=== PATIENT | female | born 1990 | race Caucasian/White ===

== ENCOUNTER 2021-03-29 08:59 | Emergency (ER) | payer OTHER, SELFPAY ==
[2021-03-29 09:09] VITALS: BP 113/73; PULSE 92; RESP 16; TEMP 36.3; O2SAT 100
--- NOTE | 2021-03-29 09:16 | ED.URI ---
HPI - URI/Sore Throat General Chief Complaint: Upper Respiratory Infection Stated Complaint: Sore Throat,Ear Pain Time Seen by Provider: 03/29/21 09:16 Source: patient Mode of arrival: ambulatory Limitations: no limitations History of Present Illness HPI Narrative: Huma Chaudhry is a 21-year-old female who comes to [facility] with sore throat, ear pain that started yesterday. She has had a lot of problems with her tonsils as a child she did not receive the Covid vaccine but states she did have Covid in December. She does not smoke Related Data Home Medications Medication Instructions Recorded Confirmed No Home Medications 03/29/21 03/29/21 Allergies Allergy/AdvReac Type Severity Reaction Status Date / Time azithromycin Allergy Severe Swelling Verified 03/29/21 09:16 amoxicillin [From Amoxil] Allergy Rash Verified 03/29/21 09:16 Review of Systems Review of Systems: CONSTITUTIONAL: Denies fever, chills, sweats. EYES: Denies visual changes, redness, discharge. ENT: Denies rhinorrhea, congestion, has sore throat, has right otalgia. CARDIOVASCULAR: Denies chest pain, palpitations, edema. RESPIRATORY: Denies dyspnea, wheezing, cough GASTROINTESTINAL: Denies abdominal pain, nausea, vomiting, diarrhea. GENITOURINARY: Denies dysuria, hematuria, abnormal discharge SKIN: Denies rash or itching. NEUROLOGIC: Denies numbness, or focal weakness. PSYCHIATRIC: Denies anxiety or depression. [facility] Past Medical History Medical History History of COVID-19 Family History Family History Grandparent Diabetes mellitus Other Hypertension Social History Social History (Updated 03/29/21 @ 09:18 by Pamela Tim CNP) Smoking status: Never smoker Alcohol intake: current Comments At time of signature, I agree with nursing past medical, surgical, social and family history. There is no relevant family history pertinent to the presenting complaint. Exam Narrative: GENERAL: This is a well-nourished, well-developed patient, in mild distress. HEAD: normocephalic, atraumatic. EYES: . Sclera clear/white. Vision is grossly intact. EARS: External ears normal, auditory canals erythema and without drainage, TMs normal without perforation. Hearing grossly intact. NOSE: External nose normal without nasal discharge, nares without redness, no rhinorrhea. THROAT: Mucous membranes moist, posterior pharynx erythema with tonsillar swelling on the left NECK: Neck supple, tender on right CARDIOVASCULAR: Regular rate and rhythm without murmurs, gallops, or rubs. RESPIRATORY: Clear to auscultation. Breath sounds equal bilaterally. No wheezes, rales, or rhonchi. GASTROINTESTINAL: Abdomen soft, non-tender, SKIN: warm, intact with no suspicious lesions or rash, good texture and turgor. NEURO: awake, alert, and oriented to person, place and time. There were no obvious focal neurologic abnormalities. Steady gait EXTREMITIES: Normal range of motion. BACK: Nontender without deformity Course Course Emergency Course: Patient here with sore throat and right ear pain Strep test negative Mild flushing of right ear to loosen some wax but is not impacted-started on polymyxin eardrops, started on prednisone, Zyrtec- to use debrox after ear drops Vital Signs Vital signs: Vital Signs Temperature 97.3 F L 03/29/21 09:09 Pulse Rate 92 03/29/21 09:09 Respiratory Rate 16 03/29/21 09:09 Blood Pressure 113/73 03/29/21 09:09 Pulse Oximetry 100 03/29/21 09:09 Temperature 97.3 F L 03/29/21 09:09 Pulse Rate 92 03/29/21 09:09 Respiratory Rate 16 03/29/21 09:09 Blood Pressure 113/73 03/29/21 09:09 Pulse Oximetry 100 03/29/21 09:09 MDM - URI/Sore Throat Differential Diagnosis Differential diagnosis: Likely upper respiratory infection, otitis media, sinusitis, viral infection, bronchitis, influenza, pharyngitis a
== END 2021-03-29 09:40 | disposition home or self-care (01) ==
PROVIDERS: Emergency Provider Nurse Practitioner; PCP Nurse Practitioner Family
DX: J02.9 Acute pharyngitis, unspecified (principal); H66.001 Acute suppurative otitis media without spontaneous rupture of ear drum, right ear; Z86.16 Personal history of COVID-19
CPT/HCPCS: 87081; 87880; 99213; G0463

== ENCOUNTER 2021-04-26 08:36 | Emergency (ER) | payer OTHER, SELFPAY ==
[2021-04-26 08:46] VITALS: BP 115/67; PULSE 71; RESP 16; TEMP 36.7
--- NOTE | 2021-04-26 09:07 | ED.EAR ---
HPI - Ear Problem General Chief complaint: Ear Stated complaint: Ear Pain Time Seen by Provider: 04/26/21 08:57 Source: patient and RN notes reviewed Mode of arrival: ambulatory Limitations: no limitations History of Present Illness HPI Narrative: Patient presents today complaining of left ear pain x2 days that radiates down her jaw and down her left neck as well as up to her left parietal scalp causing a headache. Denies any URI symptoms to include rhinorrhea, cough, sore throat, fever. No decreased hearing or drainage from the ear. She currently rates her pain 8/10 and has been taking ibuprofen with mild relief. Pain increases with swallowing. MD Complaint: ear pain Related Data Allergies Allergy/AdvReac Type Severity Reaction Status Date / Time azithromycin Allergy Severe Swelling Verified 04/26/21 08:58 amoxicillin [From Amoxil] Allergy Rash Verified 04/26/21 08:58 Review of Systems Review of Systems: CONSTITUTIONAL: Denies body aches, fever, chills, or sweats. EYES: Denies visual changes, redness, or discharge. ENT: Denies rhinorrhea, congestion, sore throat. + Left ear pain CARDIOVASCULAR: Denies chest pain, palpitations, or edema. RESPIRATORY: Denies cough or dyspnea. GASTROINTESTINAL: Denies abdominal pain, nausea, vomiting, or diarrhea. GENITOURINARY: Denies dysuria or hematuria. SKIN: Denies rash, itching, or wounds. MUSCULOSKELETAL: Denies back pain, joint pain, or myalgia. NEUROLOGIC: Denies headache, numbness, tingling, or weakness. PSYCH: Denies depression or anxiety. [facility] Past Medical History Medical History History of COVID-19 Family History Family History Grandparent Diabetes mellitus Other Hypertension Social History Social History Smoking status: Never smoker Alcohol intake: current Comments At time of signature, I have reviewed and agree with nursing past medical, surgical, social and family history unless otherwise noted. Please see nursing chart for further information. There is no relevant family history pertinent to the presenting complaint Exam Narrative: GENERAL: Well-appearing, well-nourished, and in no acute distress. HEAD: Normocephalic, atraumatic. EYES: EOMI. No redness or drainage. Conjunctivae normal. ENT: Mucous membranes pink and moist. Nares clear. No rhinorrhea. TMs normal bilaterally. Bilateral ear canals normal.+ Left movement and tragal tenderness. Throat mildly erythematous without edema or exudate. Uvula midline. NECK: Normal AROM. Supple. No lymphadenopathy. CHEST: No respiratory distress. Clear to auscultation. HEART: Regular rate and rhythm. No murmur appreciated. Normal peripheral pulses. EXTREMITIES: Normal range of motion. No edema. SKIN: Warm, dry, no rash. Capillary refill normal. Normal skin turgor. NEURO: No focal deficits. Alert and oriented x3. Gait steady. PSYCH: Normal affect. No signs of depression or anxiety. Course Vital Signs Vital signs: Vital Signs Temperature 98.1 F 04/26/21 08:46 Pulse Rate 71 04/26/21 08:46 Respiratory Rate 16 04/26/21 08:46 Blood Pressure 115/67 04/26/21 08:46 Temperature 98.1 F 04/26/21 08:46 Pulse Rate 71 04/26/21 08:46 Respiratory Rate 16 04/26/21 08:46 Blood Pressure 115/67 04/26/21 08:46 Reviewed. Pt has been instructed to follow up with his PCP regarding his elevated blood pressure today. Medical Decision Making Differential Diagnosis Differential Diagnosis: Otitis media, otitis externa, ruptured TM, serous otitis, eustachian tube dysfunction, pharyngitis, strep throat Vital Signs Vital Signs: Vital Signs Temperature 98.1 F 04/26/21 08:46 Pulse Rate 71 04/26/21 08:46 Respiratory Rate 16 04/26/21 08:46 Blood Pressure 115/67 04/26/21 08:46 Temperature 98.1 F
== END 2021-04-26 09:40 | disposition home or self-care (01) ==
PROVIDERS: Emergency Provider Nurse Practitioner
DX: J02.9 Acute pharyngitis, unspecified (principal); Z86.16 Personal history of COVID-19
CPT/HCPCS: 87081; 87880; 99213; G0463

== ENCOUNTER 2021-07-10 17:20 | Emergency (ER) | payer SELFPAY ==
[2021-07-10 17:20] VITALS: BP 115/74; PULSE 79; RESP 18; TEMP 36.8; O2SAT 100
--- NOTE | 2021-07-10 17:28 | ED.URI ---
HPI - URI/Sore Throat General Chief Complaint: Upper Respiratory Infection Stated Complaint: Sore throat Time Seen by Provider: 07/10/21 17:29 Source: patient, family, RN notes reviewed and old records reviewed Mode of arrival: ambulatory Limitations: no limitations History of Present Illness HPI Narrative: 31-year-old female presents to the [facility] with complaints of a sore throat. Patient reports sore throat x2 days. Had a headache that has cleared. MD elicited complaint: sore throat Related Data Allergies Allergy/AdvReac Type Severity Reaction Status Date / Time azithromycin Allergy Severe Swelling Verified 07/10/21 17:47 amoxicillin [From Amoxil] Allergy Rash Verified 07/10/21 17:47 Review of Systems Review of Systems: All systems reviewed & are unremarkable except as noted in HPI and below Constitutional: Constitutional: Reports no additional constitutional complaints, Denies chills, Denies fever(s) and Denies headache(s) Eyes: Eyes: Reports no additional eye complaints ENT: Reports as per HPI, Denies vertigo, Denies dizziness, Denies headache(s), Denies nasal congestion and Reports sore throat Cardiovascular: Cardiovascular: Reports no additional cardiovascular complaints, Denies chest pain, Denies syncope, Denies rapid heart rate and Denies dyspnea Respiratory: Respiratory: Reports no additional respiratory complaints, Denies cough, Denies dyspnea and Denies wheezing Gastrointestinal: Gastrointestinal: Reports no additional gastrointestinal complaints, Denies abdominal pain, Denies diarrhea, Denies nausea and Denies vomiting Musculoskeletal: Musculoskeletal: Reports no additional musculoskeletal complaints and Denies numbness Integumentary/Breasts: Skin/Breast: Reports system reviewed and no additional complaints, except as docu Neurologic: Reports system reviewed and no additional complaints, except as documented, Denies vertigo, Denies dizziness, Denies syncope, Denies headache(s), Denies focal weakness and Denies numbness Psychiatric: Psychiatric: Reports no additional psychiatric complaints Allergic/Immunologic: Allergic/Immunologic: Reports no additional allergic/immunologic complaints and Denies wheezing PMFSH Past Medical History Medical History History of COVID-19 Family History Family History Grandparent Diabetes mellitus Other Hypertension Social History Social History Smoking status: Never smoker Alcohol intake: current Comments At the time of my signature, I reviewed and agree with the nursing past medical, surgical, social, and family history. There is no relevant family history pertinent to the patient complaint. Exam Const: General: cooperative, healthy appearing, no acute distress, well developed and alert Nutritional Appearance: well nourished Orientation/consciousness: patient oriented x3 Limitations: no limitations HENMT: Head: normal to inspection Ears: external ears normal, TM's normal bilaterally and EAC's normal General nose exam: Normal external nose present and Normal nasal mucous membranes and turbinates present Face and sinus: normal facial exam Mouth: Yes Normal oral and palatal mucosa present, Yes moist mucous membranes and No muffled voice Throat: uvula midline, abnormal tonsil bilateral exudates and hypertrophy 3+ and no uvular edema Eyes: Conjunctivae: conjunctivae normal Pupils: Equal, round and reactive pupils present Direct Ophthalmoscopy: no photophobia Neck: Neck: normal visual inspection, no lymphadenopathy and no meningeal signs Chest: Chest palpation & inspection: normal inspection of the chest Resp: Effort & Inspection: normal respiratory effort and no use of accessory muscles Auscultation: clear to auscultation bilaterally, no crackles, no rales, no rhonchi and no wheezes Card
== END 2021-07-10 17:57 | disposition home or self-care (01) ==
PROVIDERS: Emergency Provider Nurse Practitioner
DX: J03.90 Acute tonsillitis, unspecified (principal); Z86.16 Personal history of COVID-19
CPT/HCPCS: 87081; 87880; 99213; G0463

== ENCOUNTER 2021-11-08 13:15 | Emergency (ER) | payer OTHER, SELFPAY ==
[2021-11-08 13:24] VITALS: BP 111/62; PULSE 76; RESP 16; TEMP 37.4; O2SAT 100
--- NOTE | 2021-11-08 13:28 | ED.URI ---
HPI - URI/Sore Throat General Chief Complaint: Upper Respiratory Infection Stated Complaint: Sore Throat Time Seen by Provider: 11/08/21 13:28 Source: patient, family, RN notes reviewed and old records reviewed Mode of arrival: ambulatory Limitations: no limitations History of Present Illness HPI Narrative: 31-year-old female presents to the [facility] with complaints of a sore throat that started today. Had a family member look at her throat and noticed that she had some enlarged tonsils. Was seen several months ago for same complaint but states that she felt worse. At that time she was treated for tonsillitis, never followed up with her primary care provider. Currently denies any fevers. Her microbiology was negative for strep in the past. MD elicited complaint: sore throat Related Data Allergies Allergy/AdvReac Type Severity Reaction Status Date / Time azithromycin Allergy Severe Swelling Verified 11/08/21 13:27 amoxicillin [From Amoxil] Allergy Rash Verified 11/08/21 13:27 Review of Systems Review of Systems: All systems reviewed & are unremarkable except as noted in HPI and below Constitutional: Constitutional: Reports no additional constitutional complaints, Denies chills, Denies fever(s) and Denies headache(s) Eyes: Eyes: Reports no additional eye complaints ENT: Reports as per HPI, Denies vertigo, Denies dizziness, Denies headache(s), Denies nasal congestion and Reports sore throat Cardiovascular: Cardiovascular: Reports no additional cardiovascular complaints, Denies chest pain, Denies syncope, Denies rapid heart rate and Denies dyspnea Respiratory: Respiratory: Reports no additional respiratory complaints, Denies cough, Denies dyspnea and Denies wheezing Gastrointestinal: Gastrointestinal: Reports no additional gastrointestinal complaints, Denies abdominal pain, Denies diarrhea, Denies nausea and Denies vomiting Musculoskeletal: Musculoskeletal: Reports no additional musculoskeletal complaints and Denies numbness Integumentary/Breasts: Skin/Breast: Reports system reviewed and no additional complaints, except as docu Neurologic: Reports system reviewed and no additional complaints, except as documented, Denies vertigo, Denies dizziness, Denies syncope, Denies headache(s), Denies focal weakness and Denies numbness Psychiatric: Psychiatric: Reports no additional psychiatric complaints Allergic/Immunologic: Allergic/Immunologic: Reports no additional allergic/immunologic complaints and Denies wheezing PMFSH Past Medical History Medical History History of COVID-19 Family History Family History Grandparent Diabetes mellitus Other Hypertension Social History Social History Smoking status: Never smoker Alcohol intake: current Comments At the time of my signature, I reviewed and agree with the nursing past medical, surgical, social, and family history. There is no relevant family history pertinent to the patient complaint. Exam Const: General: cooperative, healthy appearing, no acute distress, well developed and alert Nutritional Appearance: well nourished Orientation/consciousness: patient oriented x3 Limitations: no limitations HENMT: Head: normal to inspection Ears: external ears normal, TM's normal bilaterally and EAC's normal General nose exam: Normal external nose present Face and sinus: normal facial exam Mouth: Yes Normal oral and palatal mucosa present Throat: uvula midline, abnormal tonsil bilateral hypertrophy 2+; no erythema and no uvular edema Eyes: Conjunctivae: conjunctivae normal Pupils: Equal, round and reactive pupils present Neck: Neck: normal visual inspection, no lymphadenopathy and no meningeal signs Chest: Chest palpation & inspection: normal inspection of the chest Resp: Effort & Inspection: normal respir
== END 2021-11-08 14:25 | disposition home or self-care (01) ==
PROVIDERS: Emergency Provider Nurse Practitioner
DX: J35.1 Hypertrophy of tonsils (principal); Z86.16 Personal history of COVID-19
CPT/HCPCS: 87081; 87880; 99213; G0463

== ENCOUNTER 2021-12-09 08:11 | Emergency (ER) | payer OTHER, SELFPAY ==
--- NOTE | ~2021-12-09 | XR_ITS ---
EXAMINATION: XR ankle RT 2V DATE: 12/09/2021 08:40 INDICATION: Posttraumatic anterior right ankle pain after being hit with a softball TECHNIQUE: Anteroposterior and lateral views of the right ankle were obtained. COMPARISON: None. FINDINGS: Alignment is normal. No fracture. Joint spaces are normal. Soft tissues are unremarkable. No right an kle joint effusion. IMPRESSION: 1. Negative right ankle radiographs. Reviewed, dictated and finalized at location B.
[2021-12-09 08:18] VITALS: BP 98/51; PULSE 96; RESP 16; TEMP 37.2; O2SAT 99
--- NOTE | 2021-12-09 08:29 | ED.LOWEXIN ---
HPI - Extremity Injury (Lower) General Chief Complaint: Extremity Injury, Lower Stated Complaint: right ankle pain Time Seen by Provider: 12/09/21 08:29 Source: patient Mode of arrival: ambulatory Limitations: no limitations History of Present Illness HPI Narrative: 31-year-old female presented for complaint of right ankle pain after injury 1 week ago. She states she took a line drive to the lower leg while playing softball. Since then it has gotten progressively worse. She is able to walk, denies numbness, tingling, or weakness of the foot. She has been using ice and Tylenol. States pain radiates up to the knee and she was concerned. No other complaints at this time. Related Data Home Medications Medication Instructions Recorded Confirmed No Home Medications 12/09/21 12/09/21 Allergies Allergy/AdvReac Type Severity Reaction Status Date / Time azithromycin Allergy Severe Swelling Verified 11/08/21 13:27 amoxicillin [From Amoxil] Allergy Rash Verified 11/08/21 13:27 Review of Systems Review of Systems: CONSTITUTIONAL: Denies body aches, fever, chills CARDIOVASCULAR: Denies chest pain, palpitations, or edema. RESPIRATORY: Denies cough or dyspnea. SKIN: Denies rash, itching, or wounds. MUSCULOSKELETAL: Denies back pain, joint pain, or myalgia. NEUROLOGIC: Denies headache, numbness, tingling, or weakness. All systems reviewed & are unremarkable except as noted in HPI and below PMFSH Past Medical History Medical History History of COVID-19 Family History Family History Grandparent Diabetes mellitus Other Hypertension Social History Social History Smoking status: Never smoker Alcohol intake: current Comments At time of signature, I have reviewed and agree with nursing past medical, surgical, social and family history unless otherwise noted. Please see nursing chart for further information. There is no relevant family history pertinent to the presenting complaint Exam Narrative: GENERAL: Well-appearing, well-nourished, and in no acute distress. CHEST: No respiratory distress. HEART: Regular rate and rhythm. Normal and equal peripheral pulses. EXTREMITIES: Right anterior lower leg contusion yellow and purple in color, tender with mild swelling, tender with palpation; RLE has normal strength and sensation, mild decreased range of motion at ankle. No open wounds, skin tenting, or obvious deformity; pulse palpable and equal bilaterally, skin warm, dry, pink. Capillary refill less than 3 seconds. SKIN: Warm, dry, no rash. NEURO: Alert and oriented x3. PSYCH: Normal mood and affect Course Course Emergency Course: Patient is aware of diagnosis, understands and agrees to treatment plan. Anticipatory guidance given. Patient agrees to follow-up as directed and is aware of reasons to seek care at the emergency department. Portions of this record may have been created with voice recognition software Level of Care: Express Care Visit Vital Signs Vital signs: Vital Signs Temperature 98.9 F 12/09/21 08:18 Pulse Rate 96 12/09/21 08:18 Respiratory Rate 16 12/09/21 08:18 Blood Pressure 98/51 L 12/09/21 08:18 Pulse Oximetry 99 12/09/21 08:18 Oxygen Delivery Room Air 12/09/21 08:18 Temperature 98.9 F 12/09/21 08:18 Pulse Rate 96 12/09/21 08:18 Respiratory Rate 16 12/09/21 08:18 Blood Pressure 98/51 L 12/09/21 08:18 Pulse Oximetry 99 12/09/21 08:18 Oxygen Delivery Room Air 12/09/21 08:18 Reviewed MDM - Extremity Injury (Lower) MDM Narrative Medical decision making narrative: xray reviewed with pt. Advised RICE therapy. v/u. Differential Diagnosis Differential diagnosis: Likely ankle sprain and strain and ankle fracture Discharge Plan Discharge Clinical Impression: Contusion of
== END 2021-12-09 08:46 | disposition home or self-care (01) ==
PROVIDERS: Emergency Provider Nurse Practitioner Family
DX: S90.01XA Contusion of right ankle, initial encounter (principal); W21.07XA Struck by softball, initial encounter; Z86.16 Personal history of COVID-19
CPT/HCPCS: 73600; 99213; G0463

== ENCOUNTER 2022-07-11 10:04 | Emergency (ER) | payer OTHER, SELFPAY ==
[2022-07-11 10:22] VITALS: BP 115/63; PULSE 76; RESP 16; TEMP 37.3; O2SAT 100
--- NOTE | 2022-07-11 10:31 | ED.URI ---
HPI - URI/Sore Throat General Chief Complaint: Upper Respiratory Infection Stated Complaint: Sinus/Cough Time Seen by Provider: 07/11/22 10:34 Source: patient, RN notes reviewed and old records reviewed Mode of arrival: ambulatory Limitations: no limitations History of Present Illness HPI Narrative: 32-year-old female presents to the [facility] with sinus congestion and cough for 4 days. No treatment prior to arrival Denies smoking. Denies any past medical or surgical history Related Data Allergies Allergy/AdvReac Type Severity Reaction Status Date / Time azithromycin Allergy Severe Swelling Verified 07/11/22 10:23 amoxicillin [From Amoxil] Allergy Rash Verified 07/11/22 10:23 Review of Systems Review of Systems: All systems reviewed & are unremarkable except as noted in HPI and below Constitutional: Constitutional: Reports no additional constitutional complaints Eyes: Eyes: Reports no additional eye complaints ENT: Reports as per HPI Cardiovascular: Cardiovascular: Reports no additional cardiovascular complaints, Denies chest pain and Denies dyspnea Respiratory: Respiratory: Reports as per HPI, Denies chest congestion, Reports cough and Denies dyspnea Gastrointestinal: Gastrointestinal: Reports no additional gastrointestinal complaints, Denies abdominal pain, Denies nausea and Denies vomiting Musculoskeletal: Musculoskeletal: Reports no additional musculoskeletal complaints Integumentary/Breasts: Skin/Breast: Reports system reviewed and no additional complaints, except as docu Neurologic: Reports system reviewed and no additional complaints, except as documented Psychiatric: Psychiatric: Reports no additional psychiatric complaints Allergic/Immunologic: Allergic/Immunologic: Reports no additional allergic/immunologic complaints PMFSH Past Medical History Medical History History of COVID-19 Family History Family History Grandparent Diabetes mellitus Other Hypertension Social History Social History Smoking status: Never smoker Alcohol intake: current Comments At the time of my signature, I reviewed and agree with the nursing past medical, surgical, social, and family history. There is no relevant family history pertinent to the patient complaint. Exam Const: General: cooperative, healthy appearing, comfortable, no acute distress, well developed, alert and well nourished Nutritional Appearance: well nourished Orientation/consciousness: patient oriented x3 Limitations: no limitations HENMT: Head: normal to inspection Ears: hearing grossly normal bilaterally and external ears normal Face/Nose/Sinus: Normal external nose present, Normal nares present, Normal nasal mucous membranes and turbinates present and normal facial exam Face and sinus: normal facial exam and sinuses nontender Mouth: Yes Normal oral and palatal mucosa present, Yes lip normal and Yes moist mucous membranes Throat: posterior oropharynx normal and uvula midline Eyes: General: appearance normal, both eyes and all related structures Alignment and Position: alignment normal Periorbital: periorbital findings normal Conjunctivae: conjunctivae normal Pupils: Equal, round and reactive pupils present EOM: EOMs intact bilaterally Neck: Neck: normal visual inspection, full ROM, no lymphadenopathy and no meningeal signs Chest: Chest palpation & inspection: normal inspection of the chest Resp: Effort & Inspection: normal respiratory effort and able to speak in complete sentences Auscultation: clear to auscultation bilaterally, no crackles, no rales, no rhonchi and no wheezes Cardio: Rate: regular rate Rhythm: regular rhythm Back/Spine/Pelvis: Cervical Spine: cervical ROM normal Thoracic/Lumbar Spine: No thoracic spinal tenderness Skin: General skin exam: normal color
== END 2022-07-11 11:00 | disposition home or self-care (01) ==
PROVIDERS: Emergency Provider Nurse Practitioner
DX: J40 Bronchitis, not specified as acute or chronic (principal); Z86.16 Personal history of COVID-19
CPT/HCPCS: 99213; G0463

== ENCOUNTER 2023-02-27 09:22 | Emergency (ER) | payer OTHER, SELFPAY ==
--- NOTE | ~2023-02-27 | XR_ITS ---
EXAMINATION: XR hip LT min 2V DATE: 02/27/2023 09:44 INDICATION: Left hip pain. TECHNIQUE: 2 views of left hip were obtained. COMPARISON: None. FINDINGS: Bone alignment is normal. No fracture. There is mild left hip osteoarthritis. There is decr eased femoral head/neck offset anterolaterally, which may be seen with femoral acetabular impingement . IMPRESSION: 1. Mild left hip osteoarthritis. Reviewed, dictated and finalized at location A.
[2023-02-27 09:34] VITALS: BP 108/61; PULSE 72; RESP 16; TEMP 37.4; O2SAT 100
--- NOTE | 2023-02-27 10:02 | ED.LOWEXIN ---
HPI - Extremity Injury (Lower) General Chief Complaint: Extremity Injury, Lower Stated Complaint: Left Hip Pain Time Seen by Provider: 02/27/23 10:03 Source: patient Mode of arrival: ambulatory Limitations: no limitations History of Present Illness HPI Narrative: 32 y/o female presented for c/o left hip pain for 2 days. Pain is to the left hip flexor area, and radiates up from the hip to low back. States pain started after lifting heavy weights and doing sprints 2 days prior to onset. Patient exercises regularly but started lifting heavier for the first time. Pain has required her to change her gait. Rates pain 8/10 while sitting, 10/10 with lying or walking. Unable to lift the left leg while sitting. Denies numbness, tingling, weakness of the lower extremity. Related Data Allergies Allergy/AdvReac Type Severity Reaction Status Date / Time azithromycin Allergy Severe Swelling Verified 07/11/22 10:23 amoxicillin [From Amoxil] Allergy Rash Verified 07/11/22 10:23 Review of Systems Review of Systems: CONSTITUTIONAL: Denies body aches, fever, chills EYES: Denies visual changes ENT: Denies rhinorrhea, congestion CARDIOVASCULAR: Denies chest pain, palpitations, or edema. RESPIRATORY: Denies cough or dyspnea. GASTROINTESTINAL: Denies abdominal pain, nausea, vomiting, or diarrhea. SKIN: Denies rash, itching, or wounds. MUSCULOSKELETAL: Reports left hip pain Denies back pain, or myalgia. NEUROLOGIC: Denies headache, numbness, tingling, or weakness. All systems reviewed & are unremarkable except as noted in HPI and below PMFSH Past Medical History Medical History History of COVID-19 Family History Family History Grandparent Diabetes mellitus Other Hypertension Social History Social History Smoking status: Never smoker Alcohol intake: current Comments At time of signature, I have reviewed and agree with nursing past medical, surgical, social and family history unless otherwise noted. Please see nursing chart for further information. There is no relevant family history pertinent to the presenting complaint Exam Narrative: GENERAL: well appearing overall, appears in pain, in no acute distress. HEAD: Normocephalic, atraumatic. EYES: conjunctivae clear CHEST: Speaks in full sentences. No respiratory distress. HEART: Regular rate and rhythm. Normal and equal peripheral pulses. EXTREMITIES: Left anterior and posterior hip mild TTP; LLE has slightly limited strength, limited Active range of motion at hip due to endorses pain with movement. Pain worse with lifting LLE at hip. Normal sensation to BLEs. No ecchymosis, No open wounds, or obvious deformity; alignment normal, pulse palpable and equal bilaterally, skin warm, dry, pink. Capillary refill less than 3 seconds. SKIN: Warm, dry, no rash. NEURO: Alert and oriented x3. PSYCH: Normal mood and affect Extrem: Upper/lower leg/hip images: 1. location of hip pain 2. location of hip pain Course Course Emergency Course: Patient is aware of diagnosis, understands and agrees to treatment plan. Anticipatory guidance given. Patient agrees to follow-up as directed and is aware of reasons to seek care at the emergency department. Portions of this record may have been created with voice recognition software Level of Care: Express Care Visit Vital Signs Vital signs: Vital Signs Temperature 99.3 F 02/27/23 09:34 Pulse Rate 72 02/27/23 09:34 Respiratory Rate 16 02/27/23 09:34 Blood Pressure 108/61 02/27/23 09:34 Pulse Oximetry 100 02/27/23 09:34 Oxygen Delivery Room Air 02/27/23 09:34 Temperature 99.3 F 02/27/23 09:34 Pulse Rate 72 02/27/23 09:34 Respiratory Rate 16 02/27/23 09:34 Blood Pressure 108/61 02/27/23 09:34 Pulse Oximetry 100 02/27/23 09:34 O
== END 2023-02-27 10:23 | disposition home or self-care (01) ==
PROVIDERS: Emergency Provider Nurse Practitioner Family
DX: M25.552 Pain in left hip (principal); Z86.16 Personal history of COVID-19
CPT/HCPCS: 73502; 99213; G0463

== ENCOUNTER 2023-03-30 14:30 | Outpatient (CLI) | payer OTHER, SELFPAY ==
--- NOTE | ~2023-03-30 | MR_ITS ---
. EXAMINATION: MR hip LT w con DATE: 03/30/2023 15:40 INDICATION: Left hip pain. TECHNIQUE: Magnetic resonance imaging (MRI) of the left hip was performed without intravenous contras t after intra-articular injection of contrast (MR arthrogram). COMPARISON: Left hip radiographs 02/27/2023 FINDINGS: Bones/cartilage: Bone alignment is normal. No fracture. There is decreased bilateral femoral head/neck offset anterola terally, which may be seen with femoral acetabular impingement. Small [id number] images of left hi p demonstrate normal cartilage. There are tiny marginal osteophytes of left hip. Labrum: There is a tear of the posterior superior left acetabular labrum. Fluid: The left hip joint is well distended by contrast. There is no right hip joint effusion. There is no t rochanteric bursitis. Soft tissues: The hamstring tendon origins are normal. The gluteus minimus and gluteus medius tendons are normal. T he iliopsoas tendons are normal. IMPRESSION: 1. Tear of left acetabular labrum. 2. Decrease femoral head/neck offset bilaterally, which may be seen with femoral acetabular impingeme nt. Reviewed, dictated and finalized at location A. IMPRESSION: 1. Tear of left acetabular labrum. 2. Decrease femoral head/neck offset bilaterally, which may be seen with femora l acetabular impingement.
--- NOTE | ~2023-03-30 | XR_ITS ---
EXAMINATION: XR fl inj hip LT for MR/CT DATE: 03/30/2023 15:08 INDICATION: Left hip pain. No prior surgery. TECHNIQUE: A time-out was performed to verify the patient's name, date of , and procedure to b e performed. The procedure including the risks, benefits, and alternatives was discussed with the pat ient. Risks discussed included bleeding and infection. The patient understood the risks and agreed to proceed. The skin overlying the left hip joint was prepped and draped in usual sterile fashion. Ane sthetic was administered with 1% lidocaine subcutaneously. A 22 G needle was advanced under fluorosc opic guidance into the joint. Subsequently, injectate consisting of 9 mL of 1:200 Multihance, 1:4 1% lidocaine, and 1:4 Omnipaque 240 was instilled. The needle was removed and the entry site was clean ed and dressed. There were no immediate complications. Fluoroscopy exposure time was 0.1 minutes. Th e total number of images was 1. FINDINGS: Real-time fluoroscopy demonstrates the needle and contrast in the left hip joint. IMPRESSION: 1. Successful left hip joint injection of contrast for subsequent MR arthrography. Reviewed, dictated and finalized at location A. IMPRESSION: 1. Successful left hip joint injection of contrast for subsequent MR arthrograp .
== END 2023-03-30 14:31 | disposition home or self-care (01) ==
PROVIDERS: Visit Provider Orthopaedic Surgery
DX: M25.552 Pain in left hip (principal)
CPT/HCPCS: 20610; 73722; 77002; A9577; Q9966

== ENCOUNTER 2023-08-10 16:26 | Emergency (ER) | payer OTHER, SELFPAY ==
--- NOTE | 2023-08-10 16:31 | ED.URI ---
HPI - URI/Sore Throat General Chief Complaint: Upper Respiratory Infection Stated Complaint: Sinus Time Seen by Provider: 08/10/23 16:31 Source: patient Mode of arrival: ambulatory Limitations: no limitations History of Present Illness HPI Narrative: Huma is a 33-year-old female patient presenting to the clinic today with complaints nasal pain. She reports she started out having nasal drainage and congestion on Monday. States that she is blowing out clear nasal drainage however over the past few days she noticed that her nose has become very swollen and painful. Has an sore to the right inner nare- has been applying Bactroban to the area. MD elicited complaint: sore throat and nasal congestion Related Data Allergies Allergy/AdvReac Type Severity Reaction Status Date / Time azithromycin Allergy Severe Swelling Verified 08/10/23 16:38 Review of Systems Review of Systems: Pertinent positives per HPI. Patient denies any fever, chills, rash, headache, visual changes, dizziness, cough, runny nose, sore throat, shortness of breath, chest pain, palpitations, nausea, vomiting, diarrhea, constipation, abdominal pain, or any urinary issues. [facility] Past Medical History Medical History History of COVID-19 Surgical History Surgical History History of Family History Family History Grandparent Diabetes mellitus Breast cancer Other Hypertension Breast cancer Social History Social History Smoking status: Never smoker Alcohol intake: current Substance use type: does not use Lack of Transportation: No Lack of Food: Never True Current Housing: I Have Housing Concerned About Future Housing: No Difficulty Paying Gas/Electric Bills: No Difficulty Paying for Meds: No Currently Unemployed: No Education: High School Diploma/GED Difficulty w/ Childcare or Family Care: No Living arrangements: with family Occupation/Education: occupation 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 There is no relevant family history pertinent to the patient complaint. Exam Narrative: General: Well-developed, well nourished, in no apparent distress Head: Normocephalic, atraumatic Eyes: Pupils equally round and reactive to light bilaterally, EOM intact, sclera and conjunctive clear, no discharge, lids normal Ears: TMs intact and clear, ear canals clear, no drainage, grossly hearing normal. Nose: Nares patent, clear nasal discharge, severe inflammation to the right nare with swelling to the turbinates, abraded sore to the right medial nare, moderate inflammation to the left nares, tenderness and swelling to palpation over the nasal bridge, no sinus tenderness Mouth: Oral pharynx without lesions or masses, good dentition, MMM. Neck: Supple, trachea midline, no enlargement of anterior or posterior cervical nodes, no thyroid masses or goiter palpable. Cardio: Regular rate and rhythm, s1 and s2 normal, no murmur appreciated. Resp: Clear to auscultation bilaterally, no rhonchi, rales, wheezing or rubs Course Course Emergency Course: Portions of this record may have been created with voice recognition software. Level of Care: Express Care Visit Vital Signs Vital signs: Vital Signs Temperature 36.9 C 08/10/23 16:44 Pulse Rate 77 08/10/23 16:44 Respiratory Rate 16 08/10/23 16:44 Blood Pressure 110/70 08/10/23 16:44 Pulse Oximetry 100 08/10/23 16:44 Oxygen Delivery Room Air 08/10/23 16:44 Temperature 36.9 C 08/10/23 16:44 Pulse Rate 77 08/10/23 16:44 Respiratory Rate 16 08/10/23 16:44 Blood Pressu
[2023-08-10 16:44] VITALS: BP 110/70; PULSE 77; RESP 16; TEMP 36.9; O2SAT 100
== END 2023-08-10 17:00 | disposition home or self-care (01) ==
PROVIDERS: Emergency Provider Nurse Practitioner Family
DX: J32.9 Chronic sinusitis, unspecified (principal)
CPT/HCPCS: 99213; G0463

== ENCOUNTER 2024-03-04 16:15 | Emergency (ER) | payer OTHER, SELFPAY ==
--- NOTE | 2024-03-04 16:16 | ED.SKABFB ---
HPI - Skin/Abscess/Foreign Bdy General Chief complaint: Skin/Abscess/Foreign Body Stated complaint: tattoo right arm irritated Time Seen by Provider: 03/04/24 16:16 Source: patient Mode of arrival: ambulatory Limitations: no limitations History of Present Illness HPI narrative: Huma is a 33-year-old female patient presenting to the clinic today with complaints of a possible tattoo infection on her right arm. She reports she got two Monday the tattoos to her right arm on Monday. Noticed that her anterior upper arm tattoo has become red and swollen hand is causing achiness in her right upper arm. Denies any fever or chills. Related Data Allergies Allergy/AdvReac Type Severity Reaction Status Date / Time azithromycin Allergy Severe Swelling Verified 03/04/24 16:24 Review of Systems Review of Systems: Pertinent positives per HPI. Patient denies any fever, chills, rash, headache, visual changes, dizziness, cough, runny nose, sore throat, shortness of breath, chest pain, palpitations, nausea, vomiting, diarrhea, constipation, abdominal pain, or any urinary issues. [facility] Past Medical History Medical History History of COVID-19 Surgical History Surgical History History of Family History Family History Grandparent Diabetes mellitus Breast cancer Other Hypertension Breast cancer Social History Social History Smoking status: Never smoker Alcohol intake: current Substance use type: does not use Lack of Transportation: No Lack of Food: Never True Current Housing: I Have Housing Concerned About Future Housing: No Difficulty Paying Gas/Electric Bills: No Difficulty Paying for Meds: No Currently Unemployed: No Education: High School Diploma/GED Difficulty w/ Childcare or Family Care: No Living arrangements: with family Occupation/Education: occupation 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 There is no relevant family history pertinent to the patient complaint. Exam Narrative: General: Well-developed, well nourished, in no apparent distress Head: Normocephalic, atraumatic. Cardio: Regular rate and rhythm, s1 and s2 normal, no murmur appreciated. Resp: Clear to auscultation bilaterally, no rhonchi, rales, wheezing or rubs. Integumentary: [place], warm, and dry, redness, swelling, and erythema to the right anterior humerus tattoo. Tenderness to palpation without fluctuance. Course Course Emergency Course: Portions of this record may have been created with voice recognition software. Level of Care: Express Care Visit Vital Signs Vital signs: Vital signs reviewed MDM - Skin/Abscess/Foreign Bdy MDM Narrative Medical decision making narrative: At the time of visit patient is resting comfortably on the exam table. Patient appears to be nontoxic. Plan: I suspect patient has a skin infection from a tattoo. Prescription for Keflex was sent to the pharmacy. Supportive measures were discussed with the patient and they voiced understanding discharge instructions and agrees to treatment plan. Return precautions reviewed Differential Diagnosis Differential diagnosis: Likely abscess of skin or subcutaneous tissue, cellulitis, impetigo, contact dermatitis and other (Wound infection, allergic reaction) Discharge Plan Discharge Clinical Impression: Skin infection Patient Disposition: Home, Self-Care Condition: Stable Instructions: Antibiotic Form, Wound Infection (ED) Additional Instructions: Increase fluids and stay well hydrated Wash wound daily with soap and water Keep wound
[2024-03-04 16:25] VITALS: BP 109/55; PULSE 70; RESP 18; TEMP 36.8; O2SAT 100
== END 2024-03-04 16:42 | disposition home or self-care (01) ==
PROVIDERS: Emergency Provider Nurse Practitioner Family
DX: L08.9 Local infection of the skin and subcutaneous tissue, unspecified (principal)
CPT/HCPCS: 99213; G0463